=== PATIENT | male | born 1995 | race Hispanic/Latino ===

== ENCOUNTER 2022-01-06 21:15 | Emergency (ER) | payer SELFPAY ==
[~2022-01-06] VITALS: Ht 165.1 cm; Wt 100.7 kg
[2022-01-06] MEDS ORDERED: AMOX TR-K CLV1 EAC2 PO (21:55)
[2022-01-06] MEDS ORDERED: PROVENTIL HFA6.7 GM INH (21:55)
== END 2022-01-06 22:46 | disposition home or self-care (01) ==
LOC: ER 21:38
DX: R50.9 Fever, unspecified (principal); U07.1 COVID-19; L03.011 Cellulitis of right finger; R05.9 Cough, unspecified; J45.909 Unspecified asthma, uncomplicated
CPT/HCPCS: 71045; 99283; U0002

== ENCOUNTER 2023-12-26 20:17 | Emergency (ER) | payer OTHER ==
[~2023-12-26] VITALS: Ht 165.1 cm; Wt 105.2 kg
[~2023-12-26 20:17] MED LIST: AMOX TR-K CLV1 EAC2 PO; PROVENTIL HFA6.7 GM INH
[2023-12-26 22:19] LABS: INFLUENZAE A&B ANTIGEN (RAPID) NEGATIVE (NEGATIVE); RESPIRATORY SYNC. VIRUS NEGATIVE (NEGATIVE)
[2023-12-26] MEDS ORDERED: MEDROL4 M2 PO (22:54)
[2023-12-26] MEDS ORDERED: AZITHROMYCIN250 MG PO (22:54)
[2023-12-26 23:00] VITALS: PULSE 81; RESP 18; TEMP 99
[2023-12-27 00:08] VITALS: BP 146/89; PULSE 81; RESP 20; TEMP 99; O2SAT 100
== END 2023-12-26 23:06 | disposition home or self-care (01) ==
LOC: ER 20:22
DX: R50.9 Fever, unspecified (principal); J45.909 Unspecified asthma, uncomplicated; R05.9 Cough, unspecified; I10 Essential (primary) hypertension; B20 Human immunodeficiency virus [HIV] disease; Z11.52 Encounter for screening for COVID-19
CPT/HCPCS: 71046; 87400; 87420; 99283; U0002